=== PATIENT | male | born 1995 | race Caucasian/White ===

== ENCOUNTER 2016-05-09 22:09 | Inpatient (IN) | payer OTHER ==
[~2016-05-09] VITALS: Ht 193 cm; Wt 98.0 kg
[2016-05-09] MEDS ORDERED: SODIUM CHLORIDE 0.9% 1000ML 1,000 ML IV ONE (22:12)
[2016-05-09] MEDS ORDERED: PROPOFOL IV EMULSION 10 MG/ML 100 ML VIAL IV ONE (22:12)
[2016-05-09] MEDS ORDERED: SODIUM CHLORIDE 0.9% 1000ML 1,000 ML IV SCH (22:12)
[2016-05-09] MEDS ORDERED: PROPOFOL IV EMULSION 10 MG/ML 100 ML VIAL IV STA (22:12)
[2016-05-09] MEDS ORDERED: ARTIFICIAL TEARS OP OINT 3.5 GM TUBE OPB PRN (22:15)
--- NOTE | 2016-05-09 22:15 | EMERGENCY ROOM VISIT NOTE ---
History Report prepared by Ildaibcornelius: Nicci Francois Under the Supervision of: Dr. Alejandra Bowles M.D. First contact with patient: 21:58 Stated Complaint: RESP ARREST, OVERDOSE History of Present Illness The patient is a 21 year old male who presents to the Emergency Room with complaints of cardiac arrest from a drug overdose occurring just prior to arrival. Per EMS, the patient did a line of cocaine that may have had heroine in it also. EMS did find heroin in the room along with the cocaine. The patient' s friend states that he said he was going upstairs to do cocaine. One minute after doing the line the patient dropped to the ground and was unconscious. This HPI is limited due to the patient's current cardiac arrest state. 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 A total of 10 systems reviewed and were otherwise negative. Past Medical & Surgical Medical Problems: (1) Drug overdose, multiple drugs (2) No known health problems (3) Unresponsive state Family History Hypertension Social History Alcohol Use: occasionally Housing Status: lives with roommate Occupation Status: [employer] student Current/Historical Medications Unable to Obtain Active Prescriptions or Reported Meds Allergies Coded Allergies: Amoxicillin (Verified Allergy, Unknown, Rash, 11/30/14) Reported by PT Clavulanic Acid (Verified Allergy, Unknown, Rash, 11/30/14) Reported by PT Physical Exam Vital Signs Date Time Temp Pulse Resp B/P Pulse Ox O2 Delivery O2 Flow Rate FiO2 05/10/16 00:25 83 19 99 05/10/16 00:20 88 17 100 05/10/16 00:15 70 18 97 05/10/16 00:13 106/59 05/10/16 00:12 78 05/10/16 00:10 78 19 96 05/10/16 00:08 99/56 05/10/16 00:05 68 19 92 05/10/16 00:03 93/50 05/10/16 00:00 68 19 99 05/09/16 23:55 63 16 98 05/09/16 23:55 33.7 58 87/50 05/09/16 23:54 33.7 05/09/16 23:53 90/50 05/09/16 23:50 58 16 100 05/09/16 23:48 92/52 05/09/16 23:45 59 16 100 05/09/16 23:43 87/50 05/09/16 23:40 62 16 100 05/09/16 23:40 34.0 58 87/50 05/09/16 23:38 86/51 05/09/16 23:35 60 16 99 05/09/16 23:33 91/50 05/09/16 23:30 69 16 98 05/09/16 23:28 92/52 05/09/16 23:25 65 16 100 05/09/16 23:25 34.5 05/09/16 23:24 88/45 05/09/16 23:20 0 05/09/16 23:15 0 05/09/16 23:10 0 05/09/16 23:08 98/43 05/09/16 23:05 100 05/09/16 23:05 54 16 100 05/09/16 23:05 56 05/09/16 23:03 92/42 05/09/16 23:00 54 16 100 05/09/16 22:58 82/41 05/09/16 22:55 58 16 100 05/09/16 22:46 64 91/44 100 Mechanical Ventilator 05/09/16 22:28 67 05/09/16 22:21 35.5 68 100/36 99 Mechanical Ventilator 100 Physical Exam CONSTITUTIONAL: Ett in place s/p versed 10 mg. Sedated. Unresponsive. HEENT: Ett. Small amount of dried blood noted. NECK: Trachea is midline. CARDIOVASCULAR: Regular rate, normal perfusion RESPIRATORY: Course breath sounds present bilaterally GASTROINTESTINAL: Non-tender GENITOURINARY: No flank tenderness MUSCULOSKELETAL: Full range of motion NEUROLOGIC: Unresponsive after versed 10mg IV. Reported seizure activity en route per medics. SKIN: Normal for ethnicity. Medical Decision & Procedures ER Provider Diagnostic Interpretation: X-ray results as stated below per my interpretation and radiologist interpretation. Other radiology results as stated below per my review and radiologist interpretation. CHEST ONE VIEW PORTABLE HISTORY: Cardiac arrest, cocaine COMPARISON: None. FINDINGS: Nasogastric tube terminates below the diaphragm. The tip is not included on this study. Endotracheal tube terminates approximate 4.8 cm from the tabitha. There is no overlying defibrillator pad. The lungs are clear. The heart is normal in size. No pleural effusions. No pneumothorax. IMPRESSION: 1. No acute process within the chest. 2. Endotracheal tube terminates 4.8 cm from the tabitha. 3. Nasogastric tube terminates below the diaphragm. The tip is not included on this study. Electronically signed by: Mehdi Chowdhury M.D. 05/09/2016 10:55 PM Dictated Date/Time: 05/09/2016 10:[address] HEAD: No ICH, mass effect or edema. No evidence of acute cortical stroke. Calvarium appears intact. Mucosal thickening in the ethmoid sinuses. Fluid layering in the left maxillary and both sphenoid sinuses. Remaining visualized paranasal sinuses and mastoid air cells are clear. Radiologist: Miki Langston MD Study ready at 23:21. Laboratory Results 05/09/16 22:20 Red Blood Count 4.04, Mean Corpuscular Volume 85.9, Mean Corpuscular Hemoglobin 30.7, Mean Corpuscular Hemoglobin Concent 35.7, Mean Platelet Volume 9.2, Neutrophils (%) (Auto) 53.9, Lymphocytes (%) (Auto) 35.7, Monocytes (%) (Auto) 8.4, Eosinophils (%) (Auto) 1.4, Basophils (%) (Auto) 0.5, Neutrophils # (Auto) 4.23, Lymphocytes # (Auto) 2.80, Monocytes # (Auto) 0.66, Eosinophils # (Auto) 0.11, Basophils # (Auto) 0.04 05/09/16 22:20 Test 05/09/16 21:45 05/09/16 22:00 05/09/16 22:16 05/09/16 22:20 Urine Color YELLOW Urine Appearance CLEAR (CLEAR) Urine pH 5.0 (4.5-7.5) Urine Specific [place] 1.016 (1.000-1.030) Urine Protein 1+ (NEG) Urine Glucose (UA) 1+ (NEG) Urine Ketones NEG (NEG) Urine Occult Blood NEG (NEG) Urine Nitrite NEG (NEG) Urine Bilirubin NEG (NEG) Urine Urobilinogen NEG (NEG) Urine Leukocyte Esterase NEG (NEG) Urine WBC (Auto) 1-5 /hpf (0-5) Urine RBC (Auto) 0-4 /hpf (0-4) Urine Hyaline Casts (Auto) 5-10 /lpf (0-5) Urine Epithelial Cells (Auto) 20-30 /lpf (0-5) Urine Bacteria (Auto) NEG (NEG) Urine Opiates Screen POS (NEG) Urine Methadone, Qualitative NEG (NEG) Urine Barbiturates NEG (NEG) Urine Phencyclidine (PCP) Level NEG (NEG) Ur Amphetamine/Methamphetamine NEG (NEG) MDMA (Ecstasy) Screen NEG (NEG) Urine Benzodiazepines Screen POS (NEG) Urine Cocaine Metabolite NEG (NEG) Urine Marijuana (THC) POS (NEG) Prothrombin Time 11.9 SECONDS (9.0-12.0) Prothromb Time International Ratio 1.1 (0.9-1.1) Bedside Hemoglobin 13.3 g/dl (14.0-18.0) Bedside Hematocrit 39 % (42-52) Bedside Sodium 144 mEq/L (135-144) Bedside Potassium 3.2 mEq/L (3.3-5.0) Bedside Chloride 100 mEq/L (101-112) Bedside Total CO2 27 mEq/l (24-31) Bedside Blood Urea Nitrogen 19 mg/dl (7-18) Bedside Creatinine 1.3 mg/dl (0.6-1.3) Bedside Glucose (other) 199 mg/dl (70-99) Bedside Ionized Calcium (Yannick) 1.15 mmol/l (1.12-1.32) White Blood Count 7.85 K/uL (4.8-10.8) Red Blood Count 4.04 M/uL (4.7-6.1) Hemoglobin 12.4 g/dL (14.0-18.0) Hematocrit 34.7 % (42-52) Mean Corpuscular Volume 85.9 fL (80-100) Mean Corpuscular Hemoglobin 30.7 pg (25-34) Mean Corpuscular Hemoglobin Concent 35.7 g/dl (32-36) Platelet Count 227 K/uL (130-400) Mean Platelet Volume 9.2 fL (7.4-10.4) Neutrophils (%) (Auto) 53.9 % Lymphocytes (%) (Auto) 35.7 % Monocytes (%) (Auto) 8.4 % Eosinophils (%) (Auto) 1.4 % Basophils (%) (Auto) 0.5 % Neutrophils # (Auto) 4.23 K/uL (1.4-6.5) Lymphocytes # (Auto) 2.80 K/uL (1.2-3.4) Monocytes # (Auto) 0.66 K/uL (0.11-0.59) Eosinophils # (Auto) 0.11 K/uL (0-0.5) Basophils # (Auto) 0.04 K/uL (0-0.2) RDW Standard Deviation 37.8 fL (36.4-46.3) RDW Coefficient of Variation 12.1 % (11.5-14.5) Immature Granulocyte % (Auto) 0.1 % Immature Granulocyte # (Auto) 0.01 K/uL (0.00-0.02) Activated Partial Thromboplast Time 24.0 SECONDS (21.0-31.0) Partial Thromboplastin Ratio 0.9 Anion Gap 13.0 mmol/L (3-11) Est Creatinine Clear Calc Drug Dose 118.5 ml/min Estimated GFR () 98.9 Estimated GFR (Non- 85.3 BUN/Creatinine Ratio 14.4 (10-20) Calcium Level 7.0 mg/dl (8.5-10.1) Magnesium Level 1.8 mg/dl (1.8-2.4) Total Bilirubin 1.7 mg/dl (0.2-1) Direct Bilirubin 0.3 mg/dl (0-0.2) Aspartate Amino Transf (AST/SGOT) 26 U/L (15-37) Alanine Aminotransferase (ALT/SGPT) 26 U/L (12-78) Alkaline Phosphatase 56 U/L (45-117) Total Creatine Kinase 129 U/L (39-308) Total Protein 6.0 gm/dl (6.4-8.2) Albumin 3.5 gm/dl (3.4-5.0) Acetaminophen Level < 2 ug/ml (10-30) Ethyl Alcohol mg/dL 33.0 mg/dl (0-3) Test 05/09/16 22:37 05/09/16 23:35 Arterial Blood pH 7.25 (7.35-7.45) Arterial Blood Partial Pressure CO2 53 mmHg (35-46) Arterial Blood Partial Pressure O2 504 mm/Hg (80-95) Arterial Blood HCO3 23 mmol/L (19-24) Arterial Blood Oxygen Saturation 99.9 % (90-95) Arterial Blood Base Excess -4.7 mEq/L (-9-1.8) Arterial Blood Gas Delivery 100% Maykel Test POS (POS) Labs reviewed by ED physician. Medications Administered Medications (Trade) Dose Ordered Sig/Mc Route Start Time Stop Time Status Last Admin Dose Admin Sodium Chloride 1,000 ml @ 999 mls/hr Q1H1M IV 05/09/16 22:12 06/08/16 22:11 05/09/16 22:12 999 MLS/HR Pantoprazole Sodium/Syringe (Protonix Inj/ Syringe) 10 ml @ 5 mls/min DAILY@11 IV 05/10/16 11:00 06/09/16 10:59 05/10/16 00:18 5 MLS/MIN Propofol 1 dose 1 dose ONE STAT IV 05/09/16 22:12 05/09/16 22:20 DC 05/09/16 22:12 1 DOSE Sodium Chloride (Nss 1000ml) 1,000 ml @ 0 mls/hr Q0M ONCE IV 05/09/16 22:12 05/09/16 22:20 DC 05/09/16 22:12 999 MLS/HR ECG Indication: other (cardiac arrest) Rate (beats per minute): 67 Rhythm: sinus rhythm Findings: T-wave inversion (leads 2-4), other (no wpw) ED Course 2208: Past medical records reviewed. The patient was evaluated in room B1. A complete history and physical examination was performed. 0: I spoke with the ICU Team and they would like the patient to be hospitalized. 2212: Sodium Chloride 1,000 ml @ 0 mls/hr IV, Diprivan Iv Emulsion 100ml Vial 1, 000 ml @ 999 mls/hr IV, Lacri-Lube Oph Oint 1 appln OPB. 1100: Pantoprazole Sodium 40mg/ Syringe 10 ml @ 5 mls/min IV. 2309: Discussed the patient's case with Dr. Joseph Delarosa [facility] [place]. The patient will be evaluated for further management. Medical Decision Differential diagnoses include but are not limited to; cardiac arrest, drug abuse. 21:40 I received medical command call for cardiac arrest s/p cocaine at [facility]. bradycardic ~ 30, agonal, (?) pulseless. CPR initiated. Wide complex. Intubated. 22:10 Patient evaluated in ED. (+) Ett. Given HCO3 x 2 en route and NSS 1 liter. Medics report patient started to awake and had seizure en route. They then administered Versed 10mg. Second set of medics who brought friend to ED who was also using cocaine report patients were using cocaine and that there was also heroin on premises. Friends on site report that only cocaine was being used although medics report pinpoint pupils on their arrival. Friends report sudden collapse of patient within 5-10 minutes after using cocaine. No further information is known at this time. NSR ~ 70. BP 100/36. IVx2 with NSS boluses begun wide open. Consultation obtained with habilitative interventionist at 22:20 at which time we discussed potential benefits , albeit uncertain, of hypothermia protocol as their exists potential for arrest secondary to cocaine induced dysrhythmia and vfib arrest. Will research evidence for/against use in this clinical context further once patient stabilized and time available to make optimal therapeutic decisions. Contemporary Reviews in Cardiovascular Medicine: Cardiovascular Effects of Cocaine http://circ.ahajournals.org/content/122/ Successful use of therapeutic hypothermia in an opiate induced [id number] cardiac arrest complicated by severe hypoglycaemia and amphetamine intoxication : a case report https://www.ncbi.nlm.nih.gov/pmc/articles/POL6531800/ 23:05 (-) ICH on CT Head as read by me. Case d/w Dr. Ruiz for ICU admission. Possible mild seizure like activity of legs and right arm on my exam prior to CT now resolved. On propofol for sedation. 22:35 Informed father, Yon Montano of status. Mother, Tricia [phone]. 00:00 EtCO2 47. RR increased from 16 to 19. Patient appears comfortable on vent w/o evidence of seizure activity. Additional information garnered from nursing staff per police: patient may have attempted snorting what he thought was cocaine but was actually heroin. Circumstances remain unclear. BP ~ 110/ 60 after NSS 3 liters. Consults Time Called: [phone] Consulting Physician: ICU team Returned Call: [phone] I spoke with the ICU Team and they would like the patient to be hospitalized. Additional Consults: Time Called: [id number] Consulted Physician: Dr. Ruiz - [facility] [place] Returned Call: [phone] Additional Comments: Discussed the patient's case. The patient will be evaluated for further management. Impression Primary Impression: Unresponsive state Critical Care I have personally spent greater than 40 minutes of critical care time in the direct management of this patient. This was a life/limb threatening event. This includes time spent evaluating the patient, direct bedside care, chart review, placing orders, interpretation of diagnostic studies, discussion with consultants, patient, and family members, as well as other required patient management activities. This 40 minutes is in excess of all separately billable procedures. Scribe Attestation The scribe's documentation has been prepared under my direction and personally reviewed by me in its entirety. I confirm that the note above accurately reflects all work, treatment, procedures, and medical decision making performed by me. Departure Information Dispostion Being Evaluated By Hospitalist Prescriptions Unable to Obtain Active Prescriptions or Reported Meds
[2016-05-09 22:32] LABS: ISTAT CREATININE 1.3 mg/dl (0.6-1.3); ISTAT HEMOGLOBIN 13.3 g/dl (14.0-18.0); ISTAT IONIZED CALCIUM 1.15 mmol/l (1.12-1.32)
[2016-05-09 22:34] LABS: BASO % 0.5 %; BASO ABS # 0.04 K/uL (0-0.2); COMPLETE YES; EOS % 1.4 %; HEMATOCRIT 34.7 % (42-52); IG% 0.1 %; LYMPH % 35.7 %; MEAN CELL VOLUME 85.9 fL (80-100); MEAN CORPUSCULAR HEMOGLOBIN 30.7 pg (25-34); MEAN CORPUSCULAR HGB CONC 35.7 g/dl (32-36); MEAN PLATELET VOLUME 9.2 fL (7.4-10.4); MONO % 8.4 %; NEUT % 53.9 %; PLATELET COUNT 227 K/uL (130-400); RED BLOOD COUNT 4.04 M/uL (4.7-6.1); WHITE BLOOD COUNT 7.85 K/uL (4.8-10.8)
[2016-05-09 22:47] LABS: PARTIAL THROMBOPLASTIN RATIO 0.9
[2016-05-09 22:49] LABS: INR 1.1 (0.9-1.1); PROTHROMBIN TIME (PATIENT) 11.9 SECONDS (9.0-12.0)
[2016-05-09 22:49] LABS: ALLEN TEST POS (POS); ARTERIAL BLD GAS O2 SATURATION 99.9 % (90-95); ARTERIAL BLOOD GAS BASE EXCESS -4.7 mEq/L (-9-1.8); ARTERIAL BLOOD GAS HCO3 23 mmol/L (19-24); ARTERIAL BLOOD GAS PO2 504 mm/Hg (80-95); ARTERIAL BLOOD GAS pH 7.25 (7.35-7.45); O2 ADMINISTRATION 100%
[2016-05-09 22:51] LABS: BLOOD UREA NITROGEN 17 mg/dl (7-18); BUN/CREATININE RATIO 14.4 (10-20); CARBON DIOXIDE 24 mmol/L (21-32); CHLORIDE 109 mmol/L (98-107); GLUCOSE 173 mg/dl (70-99); MAGNESIUM 1.8 mg/dl (1.8-2.4); POTASSIUM 3.1 mmol/L (3.5-5.1); SODIUM 146 mmol/L (136-145)
--- NOTE | 2016-05-09 22:56 | DIAGNOSTIC IMAGING REPORT ---
CHEST ONE VIEW PORTABLE HISTORY: Cardiac arrest, cocaine COMPARISON: None. FINDINGS: Nasogastric tube terminates below the diaphragm. The tip is not included on this study. Endotracheal tube terminates approximate 4.8 cm from the tabitha. There is no overlying defibrillator pad. The lungs are clear. The heart is normal in size. No pleural effusions. No pneumothorax. IMPRESSION: 1. No acute process within the chest. 2. Endotracheal tube terminates 4.8 cm from the tabitha. 3. Nasogastric tube terminates below the diaphragm. The tip is not included on this study. Electronically signed by: Mehdi Chowdhury M.D. 05/09/2016 10:55 PM Dictated Date/Time: 05/09/2016 10:53 PM
[2016-05-09 23:08] LABS: URINE APPEARANCE CLEAR (CLEAR); URINE BILIRUBIN NEG (NEG); URINE COLOR YELLOW; URINE EPITHELIAL CELL AUTO 20-30 /lpf (0-5); URINE NITRITE NEG (NEG); URINE SPECIFIC GRAVITY 1.016 (1.000-1.030); UROBILINOGEN NEG (NEG)
[2016-05-09] MEDS ORDERED: LORAZEPAM 2 MG/ML 1 ML VIAL ONE (23:12)
[2016-05-09 23:27] LABS: BENZODIAZEPINE, URINE POS (NEG); COCAINE,URINE NEG (NEG); PHENCYCLIDINE, URINE NEG (NEG)
[2016-05-09 23:30] LABS: MANUAL MICROSCOPIC REQUIRED? NO; REVIEW REQ? NO
[2016-05-09 23:30] LABS: ALKALINE PHOSPHATASE 56 U/L (45-117); ALT/SGPT 26 U/L (12-78); AST/SGOT 26 U/L (15-37)
[2016-05-10] VITALS (35 sets, daily range): BP systolic 90–139; BP diastolic 41–80; PULSE 78–116; TEMP 35.5–38.3; O2SAT 85–100; Ht 193 cm; Wt 98.0 kg
[2016-05-10] MEDS ORDERED: ONDANSETRON INJ 2 MG/ML 2 ML VIAL IV PRN (00:15)
[2016-05-10] MEDS ORDERED: LORAZEPAM 2 MG/ML 1 ML VIAL IV PRN ×2 (00:15)
[2016-05-10] MEDS ORDERED: GLUCOSE 10 TABS/TUBE PO PRN (00:15)
[2016-05-10] MEDS ORDERED: GLUCAGON FOR INJ 1 MG VIAL SQ PRN (00:15)
[2016-05-10] MEDS ORDERED: DEXTROSE 50% 50 ML SYR IV PRN (00:15)
[2016-05-10] MEDS ORDERED: GLUCOSE 40% GEL 15 GM TUBE PO PRN (00:15)
[2016-05-10] MEDS ORDERED: HYDROmorphone INJ 1 MG/ML SYR ONE (00:38)
[2016-05-10] MEDS: NSS + 20MEQ KCL 1000ML 1,000 ML IV SCH ×2 (02:18→08:51)
[2016-05-10 02:20] LABS: ISTAT ALLEN TEST Pass; ISTAT ARTERIAL BLOOD GAS HCO3 22 meq/L (19-24); ISTAT ARTERIAL BLOOD GAS PCO2 54 mmHg (35-46); ISTAT ARTERIAL BLOOD GAS PO2 82 mmHg (80-95); ISTAT ARTERIAL BLOOD GAS pH 7.22 (7.35-7.45); ISTAT CARBON DIOXIDE 24 mEq/l (24-31); ISTAT DELIVERY SYSTEM Ventilator; ISTAT FIO2 100 %; ISTAT PEEP 5; ISTAT RATE 16; ISTAT SITE R Brachial; VE 13.5; Vt 500
--- NOTE | 2016-05-10 03:19 | History and Physical ---
History & Physical Date & Time of Service: May 10, 2016 at 03:17 Chief Complaint: Drug Od, Multiple Drugs; Unresponsive State Primary Care Physician: No Doctor, Assigned History of Present Illness Source: hospital records, friend The patient is a 21-year-old male who presents to emergency department by EMS after being found unresponsive following a drug overdose thought to be related to cocaine and heroin. The patient had told a friend he was going up stairs to do cocaine, and 1 minute later patient dropped to the ground and was unconscious. Due to the patient's altered mental state, he is unable to contribute to his history of present illness. He did undergo CPR at the scene, and was intubated in the field. He reportedly did have a seizure en route to the emergency department, and received Versed 10 mg IV. EMS reports that during CPR, he did develop a wide complex tachycardia. Family History Hypertension Social History Smoking Status: Unknown if Ever Smoked Smokeless Tobacco Use: No Alcohol Use: none Drug Use: none, cocaine, heroin Occupational Status: [employer] student Multi-Drug Resistant Organisms History of MDRO: No Allergies Coded Allergies: Amoxicillin (Verified Allergy, Unknown, Rash, 11/30/14) Reported by PT Clavulanic Acid (Verified Allergy, Unknown, Rash, 11/30/14) Reported by PT Home Medications Unable to Obtain Active Prescriptions or Reported Meds Review of Systems The patient's review of systems is supplied primarily by friends, police and EMS , as the patient is unable to contribute due to his altered mental state. Physical Exam Vital Signs Date Time Temp Pulse Resp B/P Pulse Ox O2 Delivery O2 Flow Rate FiO2 05/10/16 03:00 37.4 93 20 114/65 100 Mechanical Ventilator 100 05/10/16 02:45 37.5 97 20 119/78 100 Mechanical Ventilator 100 05/10/16 02:28 37.0 100 122/69 100 05/10/16 02:13 36.7 100 122/78 100 05/10/16 02:00 36.5 100 16 139/73 100 Mechanical Ventilator 100 05/10/16 01:43 36.0 102 122/72 98 05/10/16 01:40 35.6 101 96 05/10/16 01:35 100 05/10/16 01:28 35.6 100 119/80 94 05/10/16 01:25 35.5 110 93 05/10/16 01:18 35.5 105 125/80 94 05/10/16 00:58 108/63 05/10/16 00:55 80 20 108/64 100 05/10/16 00:55 35.0 84 19 108/63 05/10/16 00:50 108 99 05/10/16 00:45 80 100 05/10/16 00:43 130/77 05/10/16 00:40 34.8 88 130/77 05/10/16 00:40 120 99 05/10/16 00:35 93 21 96 05/10/16 00:30 87 22 98 05/10/16 00:25 34.4 05/10/16 00:25 83 19 99 05/10/16 00:20 88 17 100 05/10/16 00:15 70 18 97 05/10/16 00:13 106/59 05/10/16 00:12 78 05/10/16 00:10 05/10/16 00:10 78 19 96 05/10/16 00:08 99/56 05/10/16 00:05 68 19 92 05/10/16 00:03 93/50 05/10/16 00:00 68 19 99 05/09/16 23:55 63 16 98 05/09/16 23:55 33.7 58 87/50 05/09/16 23:54 33.7 05/09/16 23:53 90/50 05/09/16 23:50 58 16 100 05/09/16 23:48 92/52 05/09/16 23:45 59 16 100 05/09/16 23:43 87/50 05/09/16 23:40 62 16 100 05/09/16 23:40 34.0 58 87/50 05/09/16 23:38 86/51 05/09/16 23:35 60 16 99 05/09/16 23:33 91/50 05/09/16 23:30 69 16 98 05/09/16 23:28 92/52 05/09/16 23:25 65 16 100 05/09/16 23:25 34.5 05/09/16 23:24 88/45 05/09/16 23:20 0 05/09/16 23:15 0 05/09/16 23:10 0 05/09/16 23:08 98/43 05/09/16 23:05 100 05/09/16 23:05 54 16 100 05/09/16 23:05 56 05/09/16 23:03 92/42 05/09/16 23:00 54 16 100 05/09/16 22:58 82/41 05/09/16 22:55 58 16 100 05/09/16 22:46 64 91/44 100 Mechanical Ventilator 05/09/16 22:28 67 05/09/16 22:21 35.5 68 100/36 99 Mechanical Ventilator 100 The patient is sedated, unresponsive and on the ventilator. HEENT--PERRL, EOMI, mucous membranes moist, and oropharynx normal. Neck--supple, no JVD or bruits, thyroid normal, trachea midline, no adenopathy. Heart--normal S1 and S2, no extra beats, no murmurs, rubs or gallops. Lungs--few scattered rhonchi bilaterally, on the ventilator Abdomen--normal bowel sounds and soft, nontender and nondistended, no hernias or masses, no organomegaly. Extremities--no cyanosis, clubbing or edema. There are good distal pulses b/l. Dermatologic--normal skin turgor, normal color, warm and dry, no abnormal lymph nodes, no rash. Neurologic--deferred Rheumatologic--deferred Psychiatric--deferred Diagnostics Laboratory Results Results Past 24 Hours Test 05/09/16 21:45 05/09/16 22:00 05/09/16 22:16 05/09/16 22:20 Range/Units Urine Color YELLOW Urine Appearance CLEAR CLEAR Urine pH 5.0 4.5-7.5 Urine Specific Harman 1.016 1.000-1.030 Urine Protein 1+ NEG Urine Glucose (UA) 1+ NEG Urine Ketones NEG NEG Urine Occult Blood NEG NEG Urine Nitrite NEG NEG Urine Bilirubin NEG NEG Urine Urobilinogen NEG NEG Urine Leukocyte Esterase NEG NEG Urine WBC (Auto) 1-5 0-5 /hpf Urine RBC (Auto) 0-4 0-4 /hpf Urine Hyaline Casts (Auto) 5-10 0-5 /lpf Urine Epithelial Cells (Auto) 20-30 0-5 /lpf Urine Bacteria (Auto) NEG NEG Urine Opiates Screen POS NEG Urine Methadone, Qualitative NEG NEG Urine Barbiturates NEG NEG Urine Phencyclidine (PCP) Level NEG NEG Ur Amphetamine/Methamphetamine NEG NEG MDMA (Ecstasy) Screen NEG NEG Urine Benzodiazepines Screen POS NEG Urine Cocaine Metabolite NEG NEG Urine Marijuana (THC) POS NEG Prothrombin Time 11.9 9.0-12.0 SECONDS Prothromb Time International Ratio 1.1 0.9-1.1 Bedside Hemoglobin 13.3 14.0-18.0 g/dl Bedside Hematocrit 39 42-52 % Bedside Sodium 144 135-144 mEq/L Bedside Potassium 3.2 3.3-5.0 mEq/L Bedside Chloride 100 101-112 mEq/L Bedside Total CO2 27 24-31 mEq/l Anion Gap 21.0 13.0 3-11 mmol/L Bedside Blood Urea Nitrogen 19 7-18 mg/dl Bedside Creatinine 1.3 0.6-1.3 mg/dl Bedside Glucose (other) 199 70-99 mg/dl Bedside Ionized Calcium (Yannick) 1.15 1.12-1.32 mmol/l White Blood Count 7.85 4.8-10.8 K/uL Red Blood Count 4.04 4.7-6.1 M/uL Hemoglobin 12.4 14.0-18.0 g/dL Hematocrit 34.7 42-52 % Mean Corpuscular Volume 85.9 80-100 fL Mean Corpuscular Hemoglobin 30.7 25-34 pg Mean Corpuscular Hemoglobin Concent 35.7 32-36 g/dl Platelet Count 227 130-400 K/uL Mean Platelet Volume 9.2 7.4-10.4 fL Neutrophils (%) (Auto) 53.9 % Lymphocytes (%) (Auto) 35.7 % Monocytes (%) (Auto) 8.4 % Eosinophils (%) (Auto) 1.4 % Basophils (%) (Auto) 0.5 % Neutrophils # (Auto) 4.23 1.4-6.5 K/uL Lymphocytes # (Auto) 2.80 1.2-3.4 K/uL Monocytes # (Auto) 0.66 0.11-0.59 K/uL Eosinophils # (Auto) 0.11 0-0.5 K/uL Basophils # (Auto) 0.04 0-0.2 K/uL RDW Standard Deviation 37.8 36.4-46.3 fL RDW Coefficient of Variation 12.1 11.5-14.5 % Immature Granulocyte % (Auto) 0.1 % Immature Granulocyte # (Auto) 0.01 0.00-0.02 K/uL Activated Partial Thromboplast Time 24.0 21.0-31.0 SECONDS Partial Thromboplastin Ratio 0.9 Sodium Level 146 136-145 mmol/L Potassium Level 3.1 3.5-5.1 mmol/L Chloride Level 109 98-107 mmol/L Carbon Dioxide Level 24 21-32 mmol/L Blood Urea Nitrogen 17 7-18 mg/dl Creatinine 1.20 0.60-1.40 mg/dl Est Creatinine Clear Calc Drug Dose 118.5 ml/min Estimated GFR () 98.9 Estimated GFR (Non- 85.3 BUN/Creatinine Ratio 14.4 10-20 Random Glucose 173 70-99 mg/dl Calcium Level 7.0 8.5-10.1 mg/dl Magnesium Level 1.8 1.8-2.4 mg/dl Total Bilirubin 1.7 0.2-1 mg/dl Direct Bilirubin 0.3 0-0.2 mg/dl Aspartate Amino Transf (AST/SGOT) 26 15-37 U/L Alanine Aminotransferase (ALT/SGPT) 26 12-78 U/L Alkaline Phosphatase 56 45-117 U/L Total Creatine Kinase 129 39-308 U/L Troponin I < 0.015 0-0.045 ng/ml Total Protein 6.0 6.4-8.2 gm/dl Albumin 3.5 3.4-5.0 gm/dl Acetaminophen Level < 2 10-30 ug/ml Ethyl Alcohol mg/dL 33.0 0-3 mg/dl Test 05/09/16 22:37 05/10/16 00:20 05/10/16 02:07 05/10/16 02:47 Range/Units Arterial Blood pH 7.25 7.35-7.45 Arterial Blood Partial Pressure CO2 53 35-46 mmHg Arterial Blood Partial Pressure O2 504 80-95 mm/Hg Arterial Blood HCO3 23 19-24 mmol/L Arterial Blood Oxygen Saturation 99.9 90-95 % Arterial Blood Base Excess -4.7 -9-1.8 mEq/L Arterial Blood Gas Delivery 100% Maykel Test POS Pass Bedside Glucose 101 70-99 mg/dl Blood Gas Sample Site R Brachial Bedside Blood Gas pH (LAB) 7.22 7.35-7.45 Bedside Blood Gas pCO2 (LAB) 54 35-46 mmHg Bedside Blood Gas pO2 (LAB) 82 80-95 mmHg Bedside Blood Gas HCO3 (LAB) 22 19-24 meq/L Bedside Blood Gas Total CO2 24 24-31 mEq/l Bedside Blood Gas Base Excess (LAB) -6.0 -9-1.8 meq/L Bedside Blood Gas O2 Saturation 94.0 90-95 % Oxygen Delivery Device Ventilator Bedside Oxygen Rate (breaths/min) 16 Blood Gas Minute Ventilation 13.5 Bedside FiO2 100 % Blood Gas Tidal Volume 500 Blood Gas PEEP 5 Microbiology Results 05/10/16 MRSA DNA Surveillance Screen, Received Pending Diagnostic Radiology Patient Name: WILBERT MELO Unit Number: [id number] Dictated: 05/09/162252 Transcribed: 05/09/162252 [facility] Printed Date/Time: [~ rep prt dt]/[~ rep prt tm] [~ rep ct labl] - [~ rep ct ivnm] [facility] Radiology Department [place] [id number] Dictated: 05/09/162252 Transcribed: 05/09/162252 [facility] Printed Date/Time: [~ rep prt dt]/[~ rep prt tm] [~ rep ct labl] - [~ rep ct ivnm] HISTORY: Cardiac arrest, cocaine COMPARISON: None. FINDINGS: Nasogastric tube terminates below the diaphragm. The tip is not included on this study. Endotracheal tube terminates approximate 4.8 cm from the tabitha. There is no overlying defibrillator pad. The lungs are clear. The heart is normal in size. No pleural effusions. No pneumothorax. IMPRESSION: 1. No acute process within the chest. 2. Endotracheal tube terminates 4.8 cm from the tabitha. 3. Nasogastric tube terminates below the diaphragm. The tip is not included on this study. Electronically signed by: Mehdi Chowdhury M.D. 05/09/2016 10:55 PM Dictated Date/Time: 05/09/2016 10:53 PM The status of this report is Signed. Draft = Not yet reviewed or approved by Radiologist. Signed = Reviewed and approved by Radiologist. <AttendingPhy></AttendingPhy> <FamilyPhy>No Doctor, Assigned</FamilyPhy> < PrimaryPhy>No Doctor, Assigned</PrimaryPhy> <UnitNumber>[id number]</UnitNumber> <VisitNumber>[id number]</VisitNumber> <PatientName>WILBERT MELO</PatientName > <DateOfBirth>1995</DateOfBirth> <Location>[facility]</Location> <ServiceDate> 05/09/16</ServiceDate> <MNE>ESINDI</MNE> <OrderingPhy>Ed Bowles MD</ OrderingPhy> <OrderingPhyMNE>f rep ord dr miller</OrderingPhyMNE> <DictatingPhyMNE> f rep dict dr miller</DictatingPhyMNE> <CCListMNE>f rep ct angela</CCListMNE> < AdmittingPhyMNE>f pt admit dr miller</AdmittingPhyMNE> <AttendingPhyMNE>f pt attend dr miller</AttendingPhyMNE> <ConsultingPhyMNE>f pt consult dr miller</ConsultingPhyMNE> <FamilyPhyMNE>f pt fam dr miller</FamilyPhyMNE> <OtherPhyMNE>f pt other dr miller</OtherPhyMNE> < PrimaryPhyMNE>f pt prim care dr miller</PrimaryPhyMNE> <ReferringPhyMNE>f pt referring dr miller</ReferringPhyMNE> EKG EKG shows normal sinus rhythm at 67, long QT, no acute ST-T changes. Impression Assessment and Plan Multiple drug overdose, involving presumptive cocaine and heroin, with probable cardiac arrest--the patient is intubated. He has been started on hypothermic protocol, and will be admitted to the ICU on the ventilator with serial adjustments based on ABGs. We'll follow serial chest x-rays, CBCD, chemistry profile, magnesium level. Dr. Cevallos, director paid media on-call has been notified. He'll be placed on propofol for sedation, normal saline with potassium chloride 20 mEq at her 25 ML's per hour, Protonix 40 mg IV daily, Zofran 4 mg IV every 6 hours when necessary. Level of Care Critical Care Advanced Directives Existing Advance Directive: No Existing Living Will: No Existing Power of Industrial Arts Teacher: No Resuscitation Status FULL RESUSCITATION VTE Prophylaxis VTE Risk Assessment Done? Y/N: Yes Risk Level: High Given or contraindicated: SCD's Social Service Consult None Apply
[2016-05-10] MEDS: PROPOFOL IV EMULSION 10 MG/ML 100 ML VIAL IV SCH ×2 (03:28→07:21)
--- NOTE | 2016-05-10 06:32 | DIAGNOSTIC IMAGING REPORT ---
CT HEAD WITHOUT CONTRAST (CT) CLINICAL HISTORY: Cardiac arrest. Cocaine overdose. Change in mental status. COMPARISON STUDY: No previous studies for comparison. TECHNIQUE: Axial CT of the brain is performed from the vertex to the skull base. IV contrast was not administered for this examination. CT DOSE: 712.55 mGy.cm FINDINGS: No intra or extra-axial mass lesions are visualized. There is no CT evidence of acute cortical infarction. There is no evidence of midline shift. There is no acute hemorrhage. No calvarial fractures are visualized. A right medial temporal hypodensity likely represents a dilated perivascular space There is no evidence of pathologic ventricular dilatation. There is a left maxilla sinus air-fluid level. There is sphenoid sinus air-fluid levels. There is mucosal thickening within the ethmoid sinuses. There are frontal sinus air-fluid levels. IMPRESSION: 1. Pansinus disease. Otherwise no acute intracranial findings. Electronically signed by: Triston Bear M.D. 05/10/2016 6:31 AM Dictated Date/Time: 05/10/2016 6:29 AM
--- NOTE | 2016-05-10 06:34 | DIAGNOSTIC IMAGING REPORT ---
CHEST ONE VIEW PORTABLE CLINICAL HISTORY: Respiratory failure. Endotracheal tube adjustment. COMPARISON STUDY: 05/09/2016 FINDINGS: There is a nasogastric tube within the stomach. There is an endotracheal tube 4.5 cm above the tabitha. There is mild vascular prominence. There are subtle airspace opacities in the right upper lung zone.[ IMPRESSION: 1. Endotracheal tube 4.5 cm above the tabitha 2. Mild edema, with a developing subtle right upper lung zone airspace opacity Electronically signed by: Triston Bear M.D. 05/10/2016 6:33 AM Dictated Date/Time: 05/10/2016 6:31 AM
--- NOTE | 2016-05-10 06:38 | DIAGNOSTIC IMAGING REPORT ---
CHEST ONE VIEW PORTABLE CLINICAL HISTORY: Endotracheal tube repositioning COMPARISON STUDY: 05/09/2016 FINDINGS: The endotracheal tube is 36 mm above the tabitha. There is a nasogastric tube within the stomach. The heart remains normal in size. There is subtle interstitial prominence. There is a subtle right upper lobe airspace opacity. Overlying cardiac electrodes are evident. No significant pleural fluid is visualized in the supine study.[ IMPRESSION: 1. Endotracheal tube 36 mm above the tabitha 2. Mild edema, with a persistent subtle right upper lung zone airspace opacity Electronically signed by: Triston Bear M.D. 05/10/2016 6:36 AM Dictated Date/Time: 05/10/2016 6:35 AM
[2016-05-10] MEDS: INSULIN ASPART 100 UNITS/ML 3 ML PEN SC SCH ×2 (06:45→10:09)
--- NOTE | 2016-05-10 08:30 | Critical Care Consultation ---
Critical Care Consultation Date of Consultation: May 10, 2016. Attending Physician: Loyd Garcia M.D. Reason for Consultation: resp arrest History of Present Illness Dear Dr. Nelson: Thank you for your kind referral of Mr. Montano to the critical care service. This is a 21 yp gentleman, who used Cocaine last night and told his friend about this plan, shortly after he was found down by his friends, called the EMS and started CPR, the pt intubated at the seen and no mention of loss of pulse in the records. in the ED, the pt underwent a work up including Tox screen showing positive Cocaine and opioids , Head ct which was normal and a CXR showing aspiration. the pt was admitted to the ICU for further treatment. initially , the case reported to me as cardiac arrest and hypothermia protocol was ordered, shortly after the pt woke up and had to be sedated , so the hypothermia protocol was aborted. Today, the pt is fully awake, following commands, nodding his head with yes and no appropriately. denies pain or sob, appears comfortable on the vent. father and GF at the bed side. Past Medical/Surgical History none Family History Hypertension Social History Smoking Status: Unknown if Ever Smoked Smokeless Tobacco Use: No Alcohol Use: none Drug Use: none, cocaine, heroin Housing Status: lives with roommate Occupation Status: [employer] student Allergies Coded Allergies: Amoxicillin (Verified Allergy, Unknown, Rash, 11/30/14) Reported by PT Clavulanic Acid (Verified Allergy, Unknown, Rash, 11/30/14) Reported by PT Home Medications Unable to Obtain Active Prescriptions or Reported Meds Current Inpatient Medications Current Inpatient Medications Medications (Trade) Dose Ordered Sig/Mc Route Start Time Stop Time Status Last Admin Dose Admin Potassium Chloride/Sodium Chloride 1,000 ml @ 125 mls/hr Q8H IV 05/10/16 02:15 06/09/16 02:14 05/10/16 02:18 125 MLS/HR Pantoprazole Sodium/Syringe (Protonix Inj/ Syringe) 10 ml @ 5 mls/min DAILY IV 05/10/16 09:00 06/09/16 08:59 Insulin Aspart (novoLOG ASPART) SLIDING SCALE If C... ACHS SC 05/10/16 06:45 06/09/16 06:59 Glucose (Glucose 40% Gel) UD PRN PO 05/10/16 00:15 06/09/16 00:14 Glucose (Glucose Chew Tab) 1 tabs UD PRN PO 05/10/16 00:15 06/09/16 00:14 Dextrose (Dextrose 50% 50ML Syringe) 50 ml UD PRN IV 05/10/16 00:15 06/09/16 00:14 Glucagon (Glucagon Inj) 1 mg UD PRN SQ 05/10/16 00:15 06/09/16 00:14 Ondansetron HCl 4 mg 4 mg Q6H PRN IV 05/10/16 00:15 06/09/16 00:14 Levofloxacin/Prmx (Levaquin / D5W/ Premixed D5W) 150 ml @ 100 mls/hr Q24H IV 05/10/16 09:00 05/17/16 08:59 Review of Systems Constitutional: + problem reported (ROS is not obtainable at this point, intubated and sedated. ) Physical Exam Date Time Temp Pulse Resp B/P Pulse Ox O2 Delivery O2 Flow Rate FiO2 05/10/16 08:00 Mechanical Ventilator 40 05/10/16 08:00 40 05/10/16 07:58 37.3 84 20 102/50 97 CPAP 40 Mechanical Ventilator 05/10/16 07:37 100 05/10/16 07:28 37.2 78 18 108/49 100 Mechanical Ventilator 100 05/10/16 06:58 79 16 105/51 98 Mechanical Ventilator 100 05/10/16 06:00 37.4 80 20 106/55 100 Mechanical Ventilator 100 05/10/16 05:29 100 05/10/16 05:00 38.1 90 107/58 100 05/10/16 04:00 100 05/10/16 04:00 38.1 90 104/61 100 05/10/16 04:00 100 Mechanical Ventilator 100 05/10/16 03:00 37.4 93 20 114/65 100 Mechanical Ventilator 100 05/10/16 02:45 37.5 97 20 119/78 100 Mechanical Ventilator 100 05/10/16 02:28 37.0 100 122/69 100 05/10/16 02:13 36.7 100 122/78 100 05/10/16 02:00 36.5 100 16 139/73 100 Mechanical Ventilator 100 05/10/16 01:43 36.0 102 122/72 98 05/10/16 01:40 35.6 101 96 05/10/16 01:35 100 05/10/16 01:28 35.6 100 119/80 94 05/10/16 01:25 35.5 110 93 05/10/16 01:18 35.5 105 125/80 94 05/10/16 01:10 Mechanical Ventilator 100 05/10/16 01:10 100 05/10/16 00:58 108/63 05/10/16 00:55 80 20 108/64 100 05/10/16 00:55 35.0 84 19 108/63 05/10/16 00:50 108 99 05/10/16 00:45 80 100 05/10/16 00:43 130/77 05/10/16 00:40 34.8 88 130/77 05/10/16 00:40 120 99 05/10/16 00:35 93 21 96 05/10/16 00:30 87 22 98 05/10/16 00:25 34.4 05/10/16 00:25 83 19 99 05/10/16 00:20 88 17 100 05/10/16 00:15 70 18 97 05/10/16 00:13 106/59 05/10/16 00:12 78 05/10/16 00:10 05/10/16 00:10 78 19 96 05/10/16 00:08 99/56 05/10/16 00:05 68 19 92 05/10/16 00:03 93/50 05/10/16 00:00 68 19 99 05/09/16 23:55 63 16 98 05/09/16 23:55 33.7 58 87/50 05/09/16 23:54 33.7 05/09/16 23:53 90/50 05/09/16 23:50 58 16 100 05/09/16 23:48 92/52 05/09/16 23:45 59 16 100 05/09/16 23:43 87/50 05/09/16 23:40 62 16 100 05/09/16 23:40 34.0 58 87/50 05/09/16 23:38 86/51 05/09/16 23:35 60 16 99 05/09/16 23:33 91/50 05/09/16 23:30 69 16 98 05/09/16 23:28 92/52 05/09/16 23:25 65 16 100 05/09/16 23:25 34.5 05/09/16 23:24 88/45 05/09/16 23:20 0 05/09/16 23:15 0 05/09/16 23:10 0 05/09/16 23:08 98/43 05/09/16 23:05 100 05/09/16 23:05 54 16 100 05/09/16 23:05 56 05/09/16 23:03 92/42 05/09/16 23:00 54 16 100 05/09/16 22:58 82/41 05/09/16 22:55 58 16 100 05/09/16 22:46 64 91/44 100 Mechanical Ventilator 05/09/16 22:28 67 05/09/16 22:21 35.5 68 100/36 99 Mechanical Ventilator 100 General Appearance: WD/WN Head: normocephalic Eyes: normal inspection ENT: normal ENT inspection Neck: supple Respiratory/Chest: + rhonchi Cardiovascular: regular rate, rhythm Abdomen/GI: normal bowel sounds Extremities/Musculoskelatal: normal inspection Neurologic/Psych: lock operator II-XII nml as tested, + pertinent finding (overall lethargic but following commands this am to my exam. ) Laboratory Results Last 24 Hours Test 05/09/16 21:45 05/09/16 22:00 05/09/16 22:16 05/09/16 22:20 Urine Color YELLOW Urine Appearance CLEAR Urine pH 5.0 Urine Specific [place] 1.016 Urine Protein 1+ Urine Glucose (UA) 1+ Urine Ketones NEG Urine Occult Blood NEG Urine Nitrite NEG Urine Bilirubin NEG Urine Urobilinogen NEG Urine Leukocyte Esterase NEG Urine WBC (Auto) 1-5 /hpf Urine RBC (Auto) 0-4 /hpf Urine Hyaline Casts (Auto) 5-10 /lpf Urine Epithelial Cells (Auto) 20-30 /lpf Urine Bacteria (Auto) NEG Urine Opiates Screen POS Urine Methadone, Qualitative NEG Urine Barbiturates NEG Urine Phencyclidine (PCP) Level NEG Ur Amphetamine/Methamphetamine NEG MDMA (Ecstasy) Screen NEG Urine Benzodiazepines Screen POS Urine Cocaine Metabolite NEG Urine Marijuana (THC) POS Prothrombin Time 11.9 SECONDS Prothromb Time International Ratio 1.1 Bedside Hemoglobin 13.3 g/dl Bedside Hematocrit 39 % Bedside Sodium 144 mEq/L Bedside Potassium 3.2 mEq/L Bedside Chloride 100 mEq/L Bedside Total CO2 27 mEq/l Anion Gap 21.0 mmol/L 13.0 mmol/L Bedside Blood Urea Nitrogen 19 mg/dl Bedside Creatinine 1.3 mg/dl Bedside Glucose (other) 199 mg/dl Bedside Ionized Calcium (Yannikc) 1.15 mmol/l White Blood Count 7.85 K/uL Red Blood Count 4.04 M/uL Hemoglobin 12.4 g/dL Hematocrit 34.7 % Mean Corpuscular Volume 85.9 fL Mean Corpuscular Hemoglobin 30.7 pg Mean Corpuscular Hemoglobin Concent 35.7 g/dl Platelet Count 227 K/uL Mean Platelet Volume 9.2 fL Neutrophils (%) (Auto) 53.9 % Lymphocytes (%) (Auto) 35.7 % Monocytes (%) (Auto) 8.4 % Eosinophils (%) (Auto) 1.4 % Basophils (%) (Auto) 0.5 % Neutrophils # (Auto) 4.23 K/uL Lymphocytes # (Auto) 2.80 K/uL Monocytes # (Auto) 0.66 K/uL Eosinophils # (Auto) 0.11 K/uL Basophils # (Auto) 0.04 K/uL RDW Standard Deviation 37.8 fL RDW Coefficient of Variation 12.1 % Immature Granulocyte % (Auto) 0.1 % Immature Granulocyte # (Auto) 0.01 K/uL Activated Partial Thromboplast Time 24.0 SECONDS Partial Thromboplastin Ratio 0.9 Sodium Level 146 mmol/L Potassium Level 3.1 mmol/L Chloride Level 109 mmol/L Carbon Dioxide Level 24 mmol/L Blood Urea Nitrogen 17 mg/dl Creatinine 1.20 mg/dl Est Creatinine Clear Calc Drug Dose 118.5 ml/min Estimated GFR () 98.9 Estimated GFR (Non- 85.3 BUN/Creatinine Ratio 14.4 Random Glucose 173 mg/dl Calcium Level 7.0 mg/dl Magnesium Level 1.8 mg/dl Total Bilirubin 1.7 mg/dl Direct Bilirubin 0.3 mg/dl Aspartate Amino Transf (AST/SGOT) 26 U/L Alanine Aminotransferase (ALT/SGPT) 26 U/L Alkaline Phosphatase 56 U/L Total Creatine Kinase 129 U/L Troponin I < 0.015 ng/ml Total Protein 6.0 gm/dl Albumin 3.5 gm/dl Acetaminophen Level < 2 ug/ml Ethyl Alcohol mg/dL 33.0 mg/dl Test 05/09/16 22:37 05/10/16 00:20 05/10/16 02:07 05/10/16 02:47 Arterial Blood pH 7.25 Arterial Blood Partial Pressure CO2 53 mmHg Arterial Blood Partial Pressure O2 504 mm/Hg Arterial Blood HCO3 23 mmol/L Arterial Blood Oxygen Saturation 99.9 % Arterial Blood Base Excess -4.7 mEq/L Arterial Blood Gas Delivery 100% Maykel Test POS Pass Bedside Glucose 101 mg/dl Blood Gas Sample Site R Brachial Bedside Blood Gas pH (LAB) 7.22 Bedside Blood Gas pCO2 (LAB) 54 mmHg Bedside Blood Gas pO2 (LAB) 82 mmHg Bedside Blood Gas HCO3 (LAB) 22 meq/L Bedside Blood Gas Total CO2 24 mEq/l Bedside Blood Gas Base Excess (LAB) -6.0 meq/L Bedside Blood Gas O2 Saturation 94.0 % Oxygen Delivery Device Ventilator Bedside Oxygen Rate (breaths/min) 16 Blood Gas Minute Ventilation 13.5 Bedside FiO2 100 % Blood Gas Tidal Volume 500 Blood Gas PEEP 5 Troponin I 0.040 ng/ml Test 05/10/16 06:29 05/10/16 08:06 Bedside Glucose 117 mg/dl Creatine Kinase MB Ratio Diagnostic Results CXR consistent with increased infiltrate on the RUL and RML. Lines are supported. Head CT without intracranial injury. Assessment & Plan #1 acute resp failure with resp arrest, NOT cardiac arrest. the quick resolution of his change in mental status makes it extremely unlikely to be compatible with cardiac arrest. #2 juan aspiration, noted on CXR. #3 Drug abuse, opioids and Cocaine. Plan: #1 Cpap trial and extubate when ready. No need for ABG. #2 Add Levaquin for aspiration, no need to cover anerobes ( young and healthy dental and oral cavity). #3 dc Propofol,. #4 swallow eval 2 hrs post extubation. #5 OOB when appropriate. #6 Psych eval. #7 discussed with the family. #8 discussed with the staff on rounds in details. #9 med rec. CCT 45 min.
[2016-05-10] MEDS: LEVOFLOXACIN / D5W 750 MG in PREMIXED IN D5W 150 ML IV SCH (08:50)
[2016-05-10] MEDS ORDERED: PANTOprazole INJ 40 MG in SYRINGE 0 ML IV SCH ×2 (09:00→11:00)
[2016-05-10 09:27] LABS: CKMB/CK RATIO 1.8 (0-3.0)
[2016-05-10] MEDS ORDERED: NURSING VERBAL MED ORDER ONE (11:30)
--- NOTE | 2016-05-10 12:40 | Progress Note ---
Subjective Date of Service: May 10, 2016. Subjective pt is extubated and talking, besides not remembering event seems intact Review of Systems Constitutional: + fatigue, + weakness, No chills, No fever Respiratory: No cough, No shortness of breath, No sputum Cardiac: No chest pain, No edema Abdomen: No diarrhea, No nausea, No pain, No vomiting Male : No dysuria, No incontinence Psychiatric: No anhedonism, No depression symptoms Objective Vital Signs Date Time Temp Pulse Resp B/P Pulse Ox O2 Delivery O2 Flow Rate FiO2 05/10/16 06:00 37.4 80 20 106/55 100 Mechanical Ventilator 100 05/10/16 05:29 100 05/10/16 05:00 38.1 90 107/58 100 05/10/16 04:00 100 05/10/16 04:00 38.1 90 104/61 100 05/10/16 04:00 100 Mechanical Ventilator 100 05/10/16 03:00 37.4 93 20 114/65 100 Mechanical Ventilator 100 05/10/16 02:45 37.5 97 20 119/78 100 Mechanical Ventilator 100 05/10/16 02:28 37.0 100 122/69 100 05/10/16 02:13 36.7 100 122/78 100 05/10/16 02:00 36.5 100 16 139/73 100 Mechanical Ventilator 100 05/10/16 01:43 36.0 102 122/72 98 05/10/16 01:40 35.6 101 96 05/10/16 01:35 100 05/10/16 01:28 35.6 100 119/80 94 05/10/16 01:25 35.5 110 93 05/10/16 01:18 35.5 105 125/80 94 05/10/16 01:10 Mechanical Ventilator 100 05/10/16 01:10 100 05/10/16 00:58 108/63 05/10/16 00:55 80 20 108/64 100 05/10/16 00:55 35.0 84 19 108/63 05/10/16 00:50 108 99 05/10/16 00:45 80 100 05/10/16 00:43 130/77 05/10/16 00:40 34.8 88 130/77 05/10/16 00:40 120 99 05/10/16 00:35 93 21 96 05/10/16 00:30 87 22 98 05/10/16 00:25 34.4 05/10/16 00:25 83 19 99 05/10/16 00:20 88 17 100 05/10/16 00:15 70 18 97 05/10/16 00:13 106/59 05/10/16 00:12 78 05/10/16 00:10 05/10/16 00:10 78 19 96 05/10/16 00:08 99/56 05/10/16 00:05 68 19 92 05/10/16 00:03 93/50 05/10/16 00:00 68 19 99 05/09/16 23:55 63 16 98 05/09/16 23:55 33.7 58 87/50 05/09/16 23:54 33.7 05/09/16 23:53 90/50 05/09/16 23:50 58 16 100 05/09/16 23:48 92/52 05/09/16 23:45 59 16 100 05/09/16 23:43 87/50 05/09/16 23:40 62 16 100 05/09/16 23:40 34.0 58 87/50 05/09/16 23:38 86/51 05/09/16 23:35 60 16 99 05/09/16 23:33 91/50 05/09/16 23:30 69 16 98 05/09/16 23:28 92/52 05/09/16 23:25 65 16 100 05/09/16 23:25 34.5 05/09/16 23:24 88/45 05/09/16 23:20 0 05/09/16 23:15 0 05/09/16 23:10 0 05/09/16 23:08 98/43 05/09/16 23:05 100 05/09/16 23:05 54 16 100 05/09/16 23:05 56 05/09/16 23:03 92/42 05/09/16 23:00 54 16 100 05/09/16 22:58 82/41 05/09/16 22:55 58 16 100 05/09/16 22:46 64 91/44 100 Mechanical Ventilator 05/09/16 22:28 67 05/09/16 22:21 35.5 68 100/36 99 Mechanical Ventilator 100 Physical Exam General Appearance: WD/WN, no apparent distress Neck: supple, no JVD Respiratory/Chest: chest non-tender, lungs clear, normal breath sounds Cardiovascular: regular rate, rhythm, no murmur Abdomen: normal bowel sounds, non tender, soft Extremities: no pedal edema, no calf tenderness Neurologic/Psychiatric: alert, oriented x 3 Laboratory Results Last 24 Hours Test 05/09/16 21:45 05/09/16 22:00 05/09/16 22:16 05/09/16 22:20 Urine Color YELLOW Urine Appearance CLEAR Urine pH 5.0 Urine Specific [place] 1.016 Urine Protein 1+ Urine Glucose (UA) 1+ Urine Ketones NEG Urine Occult Blood NEG Urine Nitrite NEG Urine Bilirubin NEG Urine Urobilinogen NEG Urine Leukocyte Esterase NEG Urine WBC (Auto) 1-5 /hpf Urine RBC (Auto) 0-4 /hpf Urine Hyaline Casts (Auto) 5-10 /lpf Urine Epithelial Cells (Auto) 20-30 /lpf Urine Bacteria (Auto) NEG Urine Opiates Screen POS Urine Methadone, Qualitative NEG Urine Barbiturates NEG Urine Phencyclidine (PCP) Level NEG Ur Amphetamine/Methamphetamine NEG MDMA (Ecstasy) Screen NEG Urine Benzodiazepines Screen POS Urine Cocaine Metabolite NEG Urine Marijuana (THC) POS Prothrombin Time 11.9 SECONDS Prothromb Time International Ratio 1.1 Bedside Hemoglobin 13.3 g/dl Bedside Hematocrit 39 % Bedside Sodium 144 mEq/L Bedside Potassium 3.2 mEq/L Bedside Chloride 100 mEq/L Bedside Total CO2 27 mEq/l Anion Gap 21.0 mmol/L 13.0 mmol/L Bedside Blood Urea Nitrogen 19 mg/dl Bedside Creatinine 1.3 mg/dl Bedside Glucose (other) 199 mg/dl Bedside Ionized Calcium (Yannick) 1.15 mmol/l White Blood Count 7.85 K/uL Red Blood Count 4.04 M/uL Hemoglobin 12.4 g/dL Hematocrit 34.7 % Mean Corpuscular Volume 85.9 fL Mean Corpuscular Hemoglobin 30.7 pg Mean Corpuscular Hemoglobin Concent 35.7 g/dl Platelet Count 227 K/uL Mean Platelet Volume 9.2 fL Neutrophils (%) (Auto) 53.9 % Lymphocytes (%) (Auto) 35.7 % Monocytes (%) (Auto) 8.4 % Eosinophils (%) (Auto) 1.4 % Basophils (%) (Auto) 0.5 % Neutrophils # (Auto) 4.23 K/uL Lymphocytes # (Auto) 2.80 K/uL Monocytes # (Auto) 0.66 K/uL Eosinophils # (Auto) 0.11 K/uL Basophils # (Auto) 0.04 K/uL RDW Standard Deviation 37.8 fL RDW Coefficient of Variation 12.1 % Immature Granulocyte % (Auto) 0.1 % Immature Granulocyte # (Auto) 0.01 K/uL Activated Partial Thromboplast Time 24.0 SECONDS Partial Thromboplastin Ratio 0.9 Sodium Level 146 mmol/L Potassium Level 3.1 mmol/L Chloride Level 109 mmol/L Carbon Dioxide Level 24 mmol/L Blood Urea Nitrogen 17 mg/dl Creatinine 1.20 mg/dl Est Creatinine Clear Calc Drug Dose 118.5 ml/min Estimated GFR () 98.9 Estimated GFR (Non- 85.3 BUN/Creatinine Ratio 14.4 Random Glucose 173 mg/dl Calcium Level 7.0 mg/dl Magnesium Level 1.8 mg/dl Total Bilirubin 1.7 mg/dl Direct Bilirubin 0.3 mg/dl Aspartate Amino Transf (AST/SGOT) 26 U/L Alanine Aminotransferase (ALT/SGPT) 26 U/L Alkaline Phosphatase 56 U/L Total Creatine Kinase 129 U/L Troponin I < 0.015 ng/ml Total Protein 6.0 gm/dl Albumin 3.5 gm/dl Acetaminophen Level < 2 ug/ml Ethyl Alcohol mg/dL 33.0 mg/dl Test 05/09/16 22:37 05/10/16 00:20 05/10/16 02:07 05/10/16 02:47 Arterial Blood pH 7.25 Arterial Blood Partial Pressure CO2 53 mmHg Arterial Blood Partial Pressure O2 504 mm/Hg Arterial Blood HCO3 23 mmol/L Arterial Blood Oxygen Saturation 99.9 % Arterial Blood Base Excess -4.7 mEq/L Arterial Blood Gas Delivery 100% Maykel Test POS Pass Bedside Glucose 101 mg/dl Blood Gas Sample Site R Brachial Bedside Blood Gas pH (LAB) 7.22 Bedside Blood Gas pCO2 (LAB) 54 mmHg Bedside Blood Gas pO2 (LAB) 82 mmHg Bedside Blood Gas HCO3 (LAB) 22 meq/L Bedside Blood Gas Total CO2 24 mEq/l Bedside Blood Gas Base Excess (LAB) -6.0 meq/L Bedside Blood Gas O2 Saturation 94.0 % Oxygen Delivery Device Ventilator Bedside Oxygen Rate (breaths/min) 16 Blood Gas Minute Ventilation 13.5 Bedside FiO2 100 % Blood Gas Tidal Volume 500 Blood Gas PEEP 5 Troponin I 0.040 ng/ml Test 05/10/16 06:29 Bedside Glucose 117 mg/dl Assessment and Plan 21 M with polypharmacy overdose, respiratory arrest in the field, intubated, seizure enroute felt secondary to possible cocaine ICU support with ventilation for respiratory acidosis, and attempts initially at therapeutic hypothermia but pt became awake and agitated, extubated am of Electrolyte abnormalities repleted
[2016-05-10] MEDS ORDERED: INFLUENZA ADMINISTRATION CHARGE ONE (14:00)
[2016-05-10] MEDS ORDERED: INFLUENZA VIRUS QUAD VACCINE 0.5 ML SYR IM. ONE (14:00)
[2016-05-10] MEDS: ACETAMINOPHEN 325 MG TAB PO PRN ×2 (17:04→21:04)
[2016-05-11] MEDS: ACETAMINOPHEN 325 MG TAB PO PRN ×3 (01:19→09:08)
[2016-05-11 05:17] VITALS: TEMP 37.4
[2016-05-11 06:40] LABS: BASO % 0.2 %; BASO ABS # 0.02 K/uL (0-0.2); COMPLETE YES; EOS % 0.6 %; HEMATOCRIT 35.7 % (42-52); IG% 0.2 %; LYMPH % 12.3 %; MEAN CELL VOLUME 87.1 fL (80-100); MEAN CORPUSCULAR HEMOGLOBIN 30.2 pg (25-34); MEAN CORPUSCULAR HGB CONC 34.7 g/dl (32-36); MEAN PLATELET VOLUME 9.5 fL (7.4-10.4); MONO % 6.2 %; NEUT % 80.5 %; PLATELET COUNT 194 K/uL (130-400); WHITE BLOOD COUNT 12.17 K/uL (4.8-10.8)
[2016-05-11 07:12] LABS: BUN/CREATININE RATIO 9.2 (10-20); CALCIUM 8.6 mg/dl (8.5-10.1); CREATININE 0.95 mg/dl (0.60-1.40); MAGNESIUM 1.9 mg/dl (1.8-2.4); POTASSIUM 3.6 mmol/L (3.5-5.1)
[2016-05-11 08:00] VITALS: O2SAT 96
[2016-05-11 08:03] VITALS: BP_SYST 101; BP_SYST 92; BP_DIAS 47; BP_DIAS 60; PULSE 80; TEMP 37.1; O2SAT 96
[2016-05-11] MEDS: LEVOFLOXACIN / D5W 750 MG in PREMIXED IN D5W 150 ML IV SCH (09:09)
--- NOTE | 2016-05-11 09:37 | DIAGNOSTIC IMAGING REPORT ---
CHEST 2 VIEWS ROUTINE HISTORY: Short of breath. eval for aspiration pneumonia COMPARISON: Chest 05/09/2016. FINDINGS: Perihilar interstitial thickening has improved. This is consistent with resolving pulmonary edema. No pneumothorax. No pleural effusions. The heart is normal in size. Right lower lobe posterior and focal right upper lobe airspace opacities. These are best seen on the lateral view. Nodular opacities within the left midlung zone. IMPRESSION: 1. Bilateral airspace opacities, right greater than left. This likely represents a pneumonia. 2. Pulmonary edema pattern has significantly improved. Electronically signed by: Mehdi Chowdhury M.D. 05/11/2016 9:35 AM Dictated Date/Time: 05/11/2016 9:33 AM
--- NOTE | 2016-05-11 11:02 | Progress Note ---
Subjective Date of Service: May 11, 2016. Subjective persistent fever and hypoxxia, cxr continues to show right sided changes consistent with aspiration pneumonia or pneumonitis Review of Systems Constitutional: + chills, + fever, + weakness Respiratory: + cough, No dyspnea on exertion, No shortness of breath, No sputum Cardiac: No chest pain, No claudication, No edema Abdomen: No diarrhea, No nausea, No pain, No vomiting Male : No dysuria, No incontinence, No urinary frequency Psychiatric: No anhedonism, No depression symptoms Objective Vital Signs Date Time Temp Pulse Resp B/P Pulse Ox O2 Delivery O2 Flow Rate FiO2 05/11/16 05:17 37.4 05/11/16 00:00 Nasal Cannula 3.0 05/10/16 23:10 37.2 05/10/16 23:03 38.3 100 18 113/67 97 Nasal Cannula 3.0 05/10/16 21:02 36.6 05/10/16 20:00 Nasal Cannula 3.0 05/10/16 19:24 37.4 93 Nasal Cannula 3.0 05/10/16 19:20 85 Room Air 05/10/16 18:05 37.2 05/10/16 16:05 37.6 96 16 124/71 94 Nasal Cannula 2.0 05/10/16 16:05 Nasal Cannula 2.0 05/10/16 14:42 37.3 98 16 93 2.0 05/10/16 14:20 98 16 119/55 93 Nasal Cannula 2.0 05/10/16 14:00 110 88 Room Air 05/10/16 12:18 92 17 90/41 99 Nasal Cannula 3.0 05/10/16 12:00 Nasal Cannula 3.0 05/10/16 11:58 98 16 90/41 97 Nasal Cannula 3.0 05/10/16 10:58 37.3 111 109/60 96 Nasal Cannula 3.0 05/10/16 10:28 96 18 125/54 91 Nasal Cannula 3.0 05/10/16 09:28 116 110/63 94 Nasal Cannula 3.0 05/10/16 08:58 116 123/53 96 Nasal Cannula 3.0 05/10/16 08:34 37.3 84 20 102/50 97 Nasal Cannula 3.0 05/10/16 08:28 37.2 109/49 96 Nasal Cannula 3.0 05/10/16 08:00 Mechanical Ventilator 40 05/10/16 08:00 40 05/10/16 07:58 37.3 84 20 102/50 97 CPAP 40 Mechanical Ventilator 05/10/16 07:37 100 Physical Exam General Appearance: WD/WN, + moderate distress Neck: supple, no JVD Respiratory/Chest: chest non-tender, + decreased breath sounds, + accessory muscle use, + rales Cardiovascular: regular rate, rhythm, no murmur Abdomen: normal bowel sounds, non tender, soft Extremities: no pedal edema, no calf tenderness Neurologic/Psychiatric: alert, oriented x 3 Laboratory Results Last 24 Hours Test 05/10/16 08:46 05/10/16 09:48 05/11/16 06:10 Total Creatine Kinase 304 U/L Creatine Kinase MB 5.4 ng/ml Creatine Kinase MB Ratio 1.8 Troponin I 0.021 ng/ml Bedside Glucose 124 mg/dl White Blood Count 12.17 K/uL Red Blood Count 4.10 M/uL Hemoglobin 12.4 g/dL Hematocrit 35.7 % Mean Corpuscular Volume 87.1 fL Mean Corpuscular Hemoglobin 30.2 pg Mean Corpuscular Hemoglobin Concent 34.7 g/dl Platelet Count 194 K/uL Mean Platelet Volume 9.5 fL Neutrophils (%) (Auto) 80.5 % Lymphocytes (%) (Auto) 12.3 % Monocytes (%) (Auto) 6.2 % Eosinophils (%) (Auto) 0.6 % Basophils (%) (Auto) 0.2 % Neutrophils # (Auto) 9.80 K/uL Lymphocytes # (Auto) 1.50 K/uL Monocytes # (Auto) 0.76 K/uL Eosinophils # (Auto) 0.07 K/uL Basophils # (Auto) 0.02 K/uL RDW Standard Deviation 39.5 fL RDW Coefficient of Variation 12.4 % Immature Granulocyte % (Auto) 0.2 % Immature Granulocyte # (Auto) 0.02 K/uL Sodium Level 142 mmol/L Potassium Level 3.6 mmol/L Chloride Level 108 mmol/L Carbon Dioxide Level 26 mmol/L Anion Gap 8.0 mmol/L Blood Urea Nitrogen 9 mg/dl Creatinine 0.95 mg/dl Est Creatinine Clear Calc Drug Dose 149.7 ml/min Estimated GFR () 131.2 Estimated GFR (Non- 113.2 BUN/Creatinine Ratio 9.2 Random Glucose 96 mg/dl Calcium Level 8.6 mg/dl Magnesium Level 1.9 mg/dl Assessment and Plan 21 M with polypharmacy overdose, respiratory arrest in the field, intubated, seizure enroute felt secondary to possible cocaine ICU support with ventilation for respiratory acidosis, and attempts initially at therapeutic hypothermia but pt became awake and agitated, extubated am of , persistent hypoxia and cxr changes Concerns for aspiration or gram negative pneumonia, continued on levaquin ( has pcn allergy) did have fever overnight -, repeat cxr 05/11 shows right sided changes, adding clinda with pulmonary oversight Electrolyte abnormalities repleted
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
[2016-05-11] MEDS ORDERED: CLINDAMYCIN IV 600 MG in DEXTROSE 5% ADD-VANTAGE 50ML 50 ML IV SCH (14:00)
[2016-05-11 15:19] VITALS: BP 114/63; PULSE 91; TEMP 37.2; O2SAT 94
[2016-05-11] MEDS ORDERED: CLIN300C2 PO ×2 (15:46→16:06)
--- NOTE | 2016-05-11 15:48 | Discharge Instructions ---
Discharge Instructions Admission Reason for Admission: Drug Od, Multiple Drugs; Unresponsive State Discharge Discharge Diagnosis / Problem: respiratory failure secondary to drug overdose, aspiration pneumonia Discharge Goals Goal(s): Diagnostic testing, Therapeutic intervention Activity Recommendations Activity Limitations: as noted below Lifting Limitations: gradually increase as tolerated Exercise/Sports Limitations: until after follow-up appointment . Instructions / Follow-Up Instructions / Follow-Up no intentional exercise for one week from discharge you may alternated tylenol and ibuprofen for fever, plenty of liquids and rest Current Hospital Diet Patient's current hospital diet: Regular Diet Discharge Diet Recommended Diet: Regular Diet Pending Studies Studies pending at discharge: no Medical Emergencies . Who to Call and When: Medical Emergencies: If at any time you feel your situation is an emergency, please call 911 immediately. . Non-Emergent Contact Non-Emergency issues call your: Primary Care Provider Call Non-Emergent contact if: temperature is above 101 . . "Provider Documentation" section prepared by Loyd Garcia. VTE Core Measure Inpt VTE Proph given/why not?: SCD's
[2016-05-11] MEDS ORDERED: CONSULT PHARMACY STA (15:49)
--- NOTE | 2016-05-11 15:52 | Discharge Summary ---
Discharge Summary Admission Date: May 10, 2016 at 00:05 Discharge Date: May 11, 2016 Discharge Disposition: Home (with mother) Principal Diagnosis: acute respiratory failure secondary to drug overdose, aspiration pneumonia Consultations: DR Cevallos ICU management Medication Reconciliation New Medications: Clindamycin Hcl (Cleocin) 300 Mg Cap 600 MG PO TID for 10 Days, #60 CAP Referrals At Discharge Follow up Referrals: Physician Referral - First Available @ [facility] with Daisy Tapia M.D. Discharge Exam see todays soap note Hospital Course 21 M with polypharmacy overdose, respiratory arrest in the field, intubated, seizure enroute felt secondary to possible cocaine ICU support with ventilation for respiratory acidosis, and attempts initially at therapeutic hypothermia but pt became awake and agitated, extubated am of , Concerns for aspiration or gram negative pneumonia, fever on levaquin ( has pcn allergy) overnight , repeat cxr 05/11 shows right sided changes, change to clindamycin with outpatient close follow up [facility] to see friday 05/12 or saturday 05/13 mother is accompanying pt tonight Electrolyte abnormalities repleted Total Time Spent: Greater than 30 minutes This includes examination of the patient, discharge planning, medication reconciliation, and communication with other providers. Discharge Instructions Please refer to the electronic Patient Visit Report (Discharge Instructions) for additional information.
[2016-05-11 15:56] VITALS: TEMP 36.9
[2016-05-11 16:00] VITALS: BP 114/63; PULSE 91; TEMP 36.9; O2SAT 94
[2016-05-11] MEDS ORDERED: CLINDAMYCIN 150MG HOME PACK PO SCH (21:00)
[2016-05-14 15:34] LABS: COD UR NEGATIVE NG/ML (CUTOFF=50); HYDROCOD UR NEGATIVE NG/ML (CUTOFF=50); HYDROMOR UR NEGATIVE NG/ML (CUTOFF=50); HYDROXYETHYLFLURAZEPAM CONF NEGATIVE NG/ML (CUTOFF=50); HYDROXYMIDAZOLAM >2000 NG/ML (CUTOFF=50); HYDROXYTRIAZOLAM CONF NEGATIVE NG/ML (CUTOFF=50); MORPHINE UR 631 NG/ML (CUTOFF=50); NORHYDROCODONE CONF UR NEGATIVE NG/ML (CUTOFF=50); OXYMORPH UR NEGATIVE NG/ML (CUTOFF=50); TEMAZEPAM CONF NEGATIVE NG/ML (CUTOFF=50)
== END 2016-05-11 17:30 | disposition home or self-care (01) | DRG 208 ==
LOC: ENRESERVDT → ENRESERVTM → EDBD 22:09 → C.EDB 22:12 → C.MSICU 05-10 00:05 → C.MS2W 05-10 14:32
PROVIDERS: ADMIT Hospitalist; ATTEND Internal Medicine
PROC: 5A1935Z Respiratory Ventilation, Less than 24 Consecutive Hours (ICD-10-PCS; principal; 2016-05-10)
DX: J96.00 Acute respiratory failure, unspecified whether with hypoxia or hypercapnia (principal); J69.0 Pneumonitis due to inhalation of food and vomit; E87.2 Acidosis; G40.89 Other seizures; F10.10 Alcohol abuse, uncomplicated; R68.0 Hypothermia, not associated with low environmental temperature; F14.10 Cocaine abuse, uncomplicated; E16.2 Hypoglycemia, unspecified; F12.10 Cannabis abuse, uncomplicated; E83.51 Hypocalcemia; T40.5X1A Poisoning by cocaine, accidental (unintentional), initial encounter; T40.1X1A Poisoning by heroin, accidental (unintentional), initial encounter; Y92.003 Bedroom of unspecified non-institutional (private) residence as the place of occurrence of the external cause

== ENCOUNTER 2017-02-01 01:48 | Emergency (ER) | payer OTHER ==
[~2017-02-01] VITALS: Ht 193 cm; Wt 82.7 kg
[~2017-02-01 01:48] MED LIST: CLIN300C2 PO
[2017-02-01 01:53] VITALS: TEMP 37.1; Ht 193 cm; Wt 82.7 kg
[2017-02-01] MEDS ORDERED: PRLSR20 PO (04:07)
--- NOTE | 2017-02-01 05:40 | EMERGENCY ROOM VISIT NOTE ---
ED Visit Note First contact with patient: 03:28 Chief Complaint: Right Ankle Injury History of Present Illness: This patient is a 21-year-old male who presents to the Emergency Department by personal vehicle for evaluation of their right Ankle Injury. Patient states that they injured the ankle several hours ago, states that he twisted the ankle while walking [place] ble[place] the [place]. They report most pain over the lateral aspect of the ankle after twisting the ankle. Pain is worse with ambulation, he had initially been able to walk on it, but states now he is unable to bear weight. They deny any numbness or tingling into the distal extremity including the toes. They deny any pain extending into the affected foot or leg. Patient reports no previous fractures of the affected ankle, but states that he has had multiple strains in the past. Patient rates as his current discomfort as a 7/10. Patient has tried no medications for their pain today. Patient denies any associated injuries. Medications: Reviewed in chart Allergies: Reviewed in chart PMH: No significant past medical or surgical history SHx: Lives at home. ROS: All pertinent positive and negative review of systems are appropriately documented in the History of Present Illness. Physical Exam: VITAL SIGNS - Vital signs and nursing notes were reviewed. GENERAL - pleasant and cooperative, no acute distress, but with noticeable discomfort throughout the exam. MUSCULOSKELETAL -Right ankle with moderate edema and ecchymosis. Moderately tenderness to palpation appreciated over the lateral and medial malleolus. No tenderness extending into the foot or up the leg. Decreased ROM and strength appreciated secondary to patient discomfort. No joint laxity. NEUROLOGIC/VASCULAR - Neurovascularly intact distally with +2 dorsalis pedis pulses palpated bilaterally. Normal sensation to light and sharp touch appreciated distally. Imaging: Plain X-ray films of the right ankle were done and reviewed by me, suspect a fracture of the distal fibula, but only able to see this on the lateral view and unclear of the extent of the fracture, therefore CT was ordered. CT RIGHT ANKLE NO CONTRAST CT DOSE: 231.53 mGy.cm CLINICAL HISTORY: Right ankle pain status post trauma TECHNIQUE: Helical images were acquired in the transverse plane. Sagittal and coronal reformatted images were reviewed. A dose lowering technique was utilized adhering to the principles of ALARA. COMPARISON STUDY: Conventional radiographic study dated 02/01/2017 FINDINGS: There is extensive lateral soft tissue edema. There is a nondisplaced oblique fracture of the distal fibula. There is a tiny avulsion right mid arising from the anterior aspect of the medial malleolus. There are no dislocations. IMPRESSION: 1. Nondisplaced oblique fracture through the distal fibula 2. Tiny avulsion fracture arising from the anterior aspect of the medial malleolus 3. Lateral soft tissue swelling ED Course: Patient was seen and evaluated by myself. Differential diagnosis includes sprain/strain, contusion, fracture, dislocation. Patient was provided an ice pack for comfort. Patient given Motrin for their complaint of pain. X-rays were obtained of the affected ankle. Imaging results as above, showing acute distal fibula fracture. Images were discussed and reviewed with the patient who acknowledges understanding. Patient was placed in Orthoglass splint and provided with crutches for their comfort. Patient educated on worrisome symptoms for return visit to the emergency department. Patient instructed to follow up with orthopedics in the next week to further manage his fracture. Patient discharged to home in good condition. Current/Historical Medications Scheduled PRN Omeprazole (Prilosec), 20 MG PO DAILY PRN for Heartburn Allergies Coded Allergies: Amoxicillin (Verified Allergy, Unknown, Rash, 11/30/14) Reported by PT Clavulanic Acid (Verified Allergy, Unknown, Rash, 11/30/14) Reported by PT Vital Signs Date Time Temp Pulse Resp B/P (MAP) Pulse Ox O2 Delivery O2 Flow Rate FiO2 02/01/17 06:07 92 18 123/77 96 02/01/17 01:53 37.1 103 18 134/62 96 Room Air Departure Information Impression Primary Impression: Fracture of right ankle, lateral malleolus Dispostion Home / Self-Care Condition GOOD Referrals No Doctor, Assigned (PCP) Patient Instructions ED Fx Ankle Lateral Malleolus, [facility] Additional Instructions Discharge Instructions: You have been treated in the Emergency Department for your right ankle fracture. For pain control, you can use the following [id number] medicines (if >12 yo): - Regular strength (325mg/tab) Tylenol (acetaminophen) 2 tabs every 4-6 hours as needed. Do not exceed 10 tablets in a 24 hour period. Avoid taking more than 3000 mg of Tylenol per day. This includes any other sources of acetaminophen you may take on a regular basis. - Regular strength (200 mg/tab) Advil (ibuprofen) 1-2 tabs every 4-6 hours as needed. Do not exceed a dose of 2400 mg per day. Keep the ankle elevated as much as possible and apply ice throughout the day for the next few days to help decrease pain and inflammation. Please use the crutches and ankle splint until you follow up with an orthopedic doctor. The splint cannot get wet. Follow-up with an Orthopedic Surgeon in 4-5 days to further manage your ankle fracture. Take the discs of your images with you to your appointment. Return to the Emergency Department if your current symptoms worsen despite treatment course outlined above, or if you develop any of the following symptoms : Severe unmanageable pain, increased swelling, discoloration or new onset of numbness/tingling of the foot. Problem Qualifiers Primary Impression: Fracture of right ankle, lateral malleolus Encounter type: initial encounter Fracture type: closed Fracture alignment : nondisplaced Qualified Codes: S82.64XA - Nondisplaced fracture of lateral malleolus of right fibula, initial encounter for closed fracture
[2017-02-01 06:07] VITALS: BP 123/77; PULSE 92; O2SAT 96
--- NOTE | 2017-02-01 07:59 | DIAGNOSTIC IMAGING REPORT ---
R ANKLE MIN 3 VIEWS ROUTINE CLINICAL HISTORY: Right ankle pain status post trauma COMPARISON: None. DISCUSSION: There is a tiny bony density located inferior to the medial malleolar tip. This is age-indeterminate. There is a nondisplaced distal fibular fracture. There is lateral soft tissue swelling. IMPRESSION: 1. Acute nondisplaced distal fibular fracture. Associated soft tissue swelling. 2. Age-indeterminate chip fracture arising from the medial malleolus Electronically signed by: Triston Bear M.D. 02/01/2017 7:58 AM Dictated Date/Time: 02/01/2017 7:56 AM
--- NOTE | 2017-02-01 08:56 | DIAGNOSTIC IMAGING REPORT ---
CT RIGHT ANKLE NO CONTRAST CT DOSE: 231.53 mGy.cm CLINICAL HISTORY: Right ankle pain status post trauma TECHNIQUE: Helical images were acquired in the transverse plane. Sagittal and coronal reformatted images were reviewed. A dose lowering technique was utilized adhering to the principles of ALARA. COMPARISON STUDY: Conventional radiographic study dated 02/01/2017 FINDINGS: There is extensive lateral soft tissue edema. There is a nondisplaced oblique fracture of the distal fibula. There is a tiny avulsion right mid arising from the anterior aspect of the medial malleolus. There are no dislocations. IMPRESSION: 1. Nondisplaced oblique fracture through the distal fibula 2. Tiny avulsion fracture arising from the anterior aspect of the medial malleolus 3. Lateral soft tissue swelling Electronically signed by: Triston Bear M.D. 02/01/2017 8:55 AM Dictated Date/Time: 02/01/2017 8:52 AM
== END 2017-02-01 06:05 | disposition home or self-care (01) ==
LOC: C.EDB 01:48 → C.EDD 06:05
DX: S82.64XA Nondisplaced fracture of lateral malleolus of right fibula, initial encounter for closed fracture (principal); X50.0XXA Overexertion from strenuous movement or load, initial encounter; Y92.39 Other specified sports and athletic area as the place of occurrence of the external cause